=== PATIENT | male | born 1980 | race Caucasian/White ===

== ENCOUNTER 2017-06-04 23:55 | Emergency (ER) | payer OTHER ==
[~2017-06-04] VITALS: Ht 185.4 cm; Wt 95.8 kg
[2017-06-05 00:01] VITALS: TEMP 36.5; Ht 185.4 cm; Wt 95.8 kg
--- NOTE | 2017-06-05 00:46 | EMERGENCY ROOM VISIT NOTE ---
History Report prepared by Roberto: Andre Vail Under the Supervision of: Dr. Oziel Isabel M.D. First contact with patient: 00:11 Chief Complaint: SEIZURE Stated Complaint: BLACKOUTS/SEIZURES,DIZZY History of Present Illness The patient is a 36 year old male who presents to the Emergency Room with complaints of a sudden seizure occurring prior to arrival. Also, he has been dizzy all day. The patient's friend states that the patient has temporal lobe epilepsy, and he is not currently on medication. He states that the patient does not convulse, and he blacks out during his seizure. Additionally, the patient states that he has a lump on the back of his brain, and he had a recent MRI. The patient denies any headache, abdominal pain, weakness, fever, or neck pain. He states that his right eye is always deviated. Source of History: patient, friend Onset: prior to arrival Position: other (global) Quality: other (seizure) Timing: other (sudden) Associated Symptoms: No fevers, No headache, No neck pain, No abdominal pain , No weakness Review of Systems See HPI for pertinent positives & negatives. A total of 10 systems reviewed and were otherwise negative. Past Medical & Surgical Medical Problems: (1) Temporal lobe epilepsy Family History Hypertension Social History Smoking Status: Never Smoker Marital Status: single Housing Status: lives with family Occupation Status: unemployed Current/Historical Medications Scheduled PRN Diclofenac (Voltaren), 50 MG PO TID PRN for Pain Allergies Coded Allergies: No Known Allergies (Unverified , 06/05/17) Physical Exam Vital Signs Date Time Temp Pulse Resp B/P (MAP) Pulse Ox O2 Delivery O2 Flow Rate FiO2 06/05/17 01:36 81 20 148/98 98 06/05/17 00:01 36.5 84 20 160/102 96 Room Air Physical Exam GENERAL: Patient is well appearing and in no acute distress. HEENT: No acute trauma, normocephalic atraumatic, mucous membranes moist, no nasal congestion, no scleral icterus. NECK: No stridor, no adenopathy, no meningismus, trachea is midline. LUNGS: No dyspnea. Clear to auscultation and equal bilaterally. No wheeze, no rhonchi. HEART: Regular rate and rhythm. No murmurs, rubs, gallops appreciated. ABDOMEN: Soft, nontender, bowel sounds positive, no masses appreciated, no peritonitis. BACK: No midline tenderness, no CVA tenderness EXTREMITIES: Normal motion all extremities, no cyanosis, no edema. 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 Alert and oriented, no acute motor or sensory deficits, no focal weakness, cranial nerves grossly intact. SKIN: Large skin tag on the right shoulder. No rash, no jaundice, no diaphoresis. Medical Decision & Procedures ER Provider Diagnostic Interpretation: CT results as stated below per interpretation by me and the radiologist: CT HEAD: No intracranial hemorrhage or mass effect. There is a high clinical concern for underlying mass, contrast enhanced MRI is the modality of choice. Left maxillary sinus mucosal thickening. OUTPATIENT MRI done on 06/01/17 Impression: 1.No convincing cavernous sinus or parasellar mass is demonstrated. 2. Symmetric periventricular white matter loss and T2/FLAIR signal hyperintensity favoring end-stage periventricular leukomalacia. 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 ED Course 0011: The patient was evaluated in room B11. A complete history and physical exam was performed. 0128: I reevaluated the patient, and he states that he feels fine and would like to go home. Medical Decision 36 yr old male arrives with family after possible seizure like episode. He gets these regularly but seems to have been out longer than usual. On no meds for it but follows with PCP. Recent MRI done without clear cause of this. Has normal CT here. He is in no distress and wishes to go home. Patient wishes to go home with his family, as several of the other family members who were being seen in ED have already been discharged. He looks well. He does not have meningitis. He is not septic. No cause of carotid dissection. I do not feel he requires LP at this time. He states he feels fine. Admits to doing much more activity last few days and not sleeping much thus I stressed keeping well hydrated and getting better rest over the next few days. Medication Reconcilliation Current Medication List: was personally reviewed by me Blood Pressure Screening Patient's blood pressure: Elevated blood pressure Blood pressure disposition: Referred to PCP Impression Primary Impression: Seizure Scribe Attestation The scribe's documentation has been prepared under my direction and personally reviewed by me in its entirety. I confirm that the note above accurately reflects all work, treatment, procedures, and medical decision making performed by me. Departure Information Dispostion Home / Self-Care Referrals Gokul Roland M.D. (PCP) Forms HOME CARE DOCUMENTATION FORM, IMPORTANT VISIT INFORMATION Patient Instructions ED Seizure Recurrent, My [facility] Additional Instructions Please follow up with your primary care provider to discuss full results of your MRI.
[2017-06-05] MEDS ORDERED: DICL50TA3 PO (01:07)
[2017-06-05 01:36] VITALS: BP 148/98; PULSE 81; O2SAT 98
--- NOTE | 2017-06-05 06:34 | DIAGNOSTIC IMAGING REPORT ---
HEAD WITHOUT CONTRAST (CT) CT DOSE: 614.27 mGy.cm HISTORY: Seizure reported seizure like activity with reported posterior brain estrella TECHNIQUE: Multiaxial CT images of the head were performed without the use of intravenous contrast. A dose lowering technique was utilized adhering to the principles of ALARA. Comparison: None. Findings: Minimal mucosal thickening left maxillary sinus. Thinning of the left temporal bone region possibly postoperative. This is a nonacute finding. No acute intracranial hemorrhage. No midline shift. Impression: No acute process by CT criteria The above report was generated using voice recognition software. It may contain grammatical, syntax or spelling errors. Electronically signed by: rAisteo Amador M.D. 06/05/2017 6:33 AM Dictated Date/Time: 06/05/2017 6:31 AM
== END 2017-06-05 01:38 | disposition home or self-care (01) ==
LOC: C.EDB 23:57
DX: G40.909 Epilepsy, unspecified, not intractable, without status epilepticus (principal); Z82.49 Family history of ischemic heart disease and other diseases of the circulatory system

== ENCOUNTER → 2017-07-18 | Outpatient (CLI) | payer OTHER ==
[~2017-07-18] MED LIST: DICL50TA3 PO
== END | disposition home or self-care (01) ==
LOC: C.NEUR 13:12
PROVIDERS: ATTEND Family Medicine
DX: G40.A09 Absence epileptic syndrome, not intractable, without status epilepticus (principal)